=== PATIENT | male | born 1990 ===

== ENCOUNTER 2018-03-17 08:19 | Emergency (ER) | payer OTHER ==
[2018-03-17 08:59] VITALS: RESP 18; O2SAT 100; BMI 23.1
--- NOTE | 2018-03-17 09:04 | C.PDOC ---
History Of Present Illness 27 year old male presents to the ED for evaluation of pain and swelling to the right hand sustained status post hitting refrigerator today. Denies any weakness or numbness. Time Seen by Provider: 03/17/18 08:43 Chief Complaint (Nursing): Finger,Hand,&Wrist History Per: Patient History/Exam Limitations: no limitations Onset/Duration Of Symptoms: Hrs, Persistent Current Symptoms Are (Timing): Still Present Pain Scale Rating Of: 6 Past Medical History Reviewed: Historical Data, Nursing Documentation, Vital Signs Vital Signs: Last Vital Signs Temp 99.4 F 03/17/18 08:45 Pulse 76 03/17/18 08:45 Resp 18 03/17/18 08:45 BP 132/110 H 03/17/18 08:45 Pulse Ox 100 03/17/18 08:45 - Medical History PMH: No Chronic Diseases Other Surgeries: Hx of surgeries Family History: States: No Known Family Hx - Social History Hx Alcohol Use: No Hx Substance Use: Yes - Immunization History Hx Tetanus Toxoid Vaccination: No Hx Influenza Vaccination: No Hx Pneumococcal Vaccination: No Review Of Systems Except As Marked, All Systems Reviewed And Found Negative. Musculoskeletal: Positive for: Hand Pain (right) Neurological: Negative for: Weakness, Numbness Physical Exam - Physical Exam Appears: Non-toxic Skin: Normal Color, No Rash Head: Atraumatic Eye(s): bilateral: Normal Inspection Ear(s): Bilateral: Normal Nose: Normal Oral Mucosa: Moist Neck: Supple Chest: Symmetrical Cardiovascular: Rhythm Regular Respiratory: Normal Breath Sounds Gastrointestinal/Abdominal: Soft, No Tenderness Extremity: No Normal ROM (limited due to pain to right 5th finger ), Tenderness (R. hand), Swelling (R. hand) Extremity: Left: Atraumatic, Normal ROM (R. 5th finger decrease movement due to pain), Right: Bony Point Tenderness (r. metacarpal tenderness) Pulses: Left Radial: Normal, Right Radial: Normal Neurological/Psych: Oriented x3, Normal Cranial Nerves, Normal Motor, Normal Sensation ED Course And Treatment O2 Sat by Pulse Oximetry: 100 (RA) Pulse Ox Interpretation: Normal - Other Rad XR right hand X-Ray: Viewed By Me, Read By Radiologist Interpretation: IMPRESSION: Dorsal dislocation at 5th carpal-metacarpal articulation and possible palmar dislocation at 4th carpal-metacarpal articulation. Questionable nondisplaced hamate fracture. Technically limited examination. - Physician Consult Information Time Consulting Physician Contacted: 10:09 Physician Contacted: Dr New Outcome Of Conversation: recomended joint proximal phalangs ring and 5th finger, attempt closed reduction of the metacarpal and ulnar gutter splint, follow up in office at 9 am in office Orthopedic Time Performed: 11:36 Time Out: Site verified, Patient ID confirmed Procedure: Joint reduction (4th and 5th metacarpal dislocation reduced with traction of fingers ) Location: Right Consent obtained: Verbal Performed by: Attending Physician Diagnosis: Dislocation Location: Right Bone: Metacarpal (4th and 5th ) Anesthetic Technique: Intravenous pain meds Systemic Analgesia: Morphine Capillary refill: Normal Distal Sensation: Normal Distal Motor Function: Normal Capillary Refill: Normal Compartment: Normal Distal Sensation: Normal Distal Motor Function: Normal Post-reduction Radiograph: Reduced Patient tolerated procedure: Well Medical Decision Making Medical Decision Making: Plan - Tylenol 650mg PO - Morphine 4mg IV - Zofran 4mg IVP Procedure - Joint reduction Disposition - Disposition Referrals: Ramesh Salgado MD [Staff Provider] - Disposition: HOME/ ROUTINE Disposition Time: 14:23 Condition: GOOD Additional Instructions: at 9 am Prescriptions: Ibuprofen [Motrin] 600 mg PO TID #20 tab Instructions: Hand Fracture (DC) Forms: General Discharge Instructions, [facility] (Malagasy), Work Excuse - Clinical Impression Clinical Impression: Dislocation of metacarpal joint, Fracture of fourth metacarpal bone - Scribe Statement The provider has reviewed the documentation as recorded by the Scribe Anai Mckenna All medical record entries made by the Scribe were at my direction and personally dictated by me. I have reviewed the chart and agree that the record accurately reflects my personal performance of the history, physical exam, medical decision making, and the department course for this patient. I have also personally directed, reviewed, and agree with the discharge instructions and disposition.. Orthopedic Care Application Of:: Ulnar Gutter Splint (4th and 5th finger roni tape. Patient tolerated procedure well. Neurovascular exam normal after splint application. )
--- NOTE | 2018-03-17 10:00 | RAD ---
PROCEDURE: Right Hand Radiographs. HISTORY: trauma COMPARISON: None. FINDINGS: BONES: There is a questionable nondisplaced fracture of the hamate. This may be artifactual. There is dorsal dislocation at the 5th carpal-metacarpal articulation. There is probable palmar dislocation at the 4th carpal-metacarpal articulation. The examination is somewhat technically limited. The remaining joint spaces and articular surfaces are preserved. There is no other fracture identified. The scapholunate interval appears normal. JOINTS: As above SOFT TISSUES: Normal. OTHER FINDINGS: None. IMPRESSION: Dorsal dislocation at 5th carpal-metacarpal articulation and possible palmar dislocation at 4th carpal-metacarpal articulation. Questionable nondisplaced hamate fracture. Technically limited examination.
[2018-03-17] MEDS ORDERED: Morphine 4 MG/ML VIAL IV ONE (10:22)
[2018-03-17] MEDS ORDERED: Morphine 4 MG/ML VIAL ONE (10:32)
[2018-03-17 12:14] VITALS: BP 128/73; PULSE 64; TEMP 99.2
--- NOTE | 2018-03-17 18:11 | RAD ---
PROCEDURE: Right Hand Radiographs. HISTORY: postreduction COMPARISON: None. FINDINGS: BONES: Minimally displaced fracture of the base of the 4th metacarpal, possibly comminuted. No other fracture identified. JOINTS: Normal. No osteoarthritic changes. SOFT TISSUES: Normal. OTHER FINDINGS: None. IMPRESSION: Minimally displaced fracture at base of 4th metacarpal.
== END 2018-03-17 12:30 | disposition home or self-care (01) ==
LOC: C.ER 08:19
DX: S62.314A Displaced fracture of base of fourth metacarpal bone, right hand, initial encounter for closed fracture (principal); S63.054A Dislocation of other carpometacarpal joint of right hand, initial encounter; W22.8XXA Striking against or struck by other objects, initial encounter
CPT/HCPCS: 26670; 73130; 96374; 99285; J2270; J2405